=== PATIENT | male | born 1985 | race Hispanic/Latino ===

== ENCOUNTER 2023-09-08 00:24 | Emergency (ER) | payer SELFPAY ==
[2023-09-08] MEDS ORDERED: Ibuprofen 200 MG TAB ONE (01:07)
== END 2023-09-08 01:29 | disposition home or self-care (01) ==
LOC: CSHERS 00:24
DX: T14.8XXA Other injury of unspecified body region, initial encounter (principal); M79.632 Pain in left forearm; M79.631 Pain in right forearm; F17.290 Nicotine dependence, other tobacco product, uncomplicated; X58.XXXA Exposure to other specified factors, initial encounter